=== PATIENT | male | born 2005 | race Caucasian/White ===

== ENCOUNTER 2023-02-05 08:20 | Day surgery (SDC) | payer MEDICAID ==
[~2023-02-05] VITALS: Ht 180.3 cm; Wt 81.6 kg
[~2023-02-05 08:20] MED LIST: [UNRECOGNIZED DRUG - CODE] TP
[2023-02-05] MEDS ORDERED: LACTATED RINGERS 1,000 ML IV SCH (09:00)
[2023-02-05] MEDS ORDERED: BUPIVACAINE HCL/PF 0.5% (5MG/ML) 30ML ONE (12:28)
[2023-02-05] MEDS ORDERED: ACETAMINOPHEN 500MG TABLET ONE (13:16)
[2023-02-05] MEDS ORDERED: PROPOFOL 200MG/20ML VIAL IV ONE ×2 (13:31→13:47)
[2023-02-05] MEDS ORDERED: MIDAZOLAM HCL 2 MG/2 ML VIAL ONE (13:33)
[2023-02-05] MEDS ORDERED: FENTANYL CITRATE/PF 50MCG/ML 2ML VIAL ONE (13:38)
[2023-02-05] MEDS ORDERED: ONDANSETRON HCL 4MG/2ML INJ ONE (13:39)
[2023-02-05] MEDS ORDERED: METOCLOPRAMIDE HCL 10MG/2ML VIAL ONE (13:39)
[2023-02-05] MEDS ORDERED: HYDROMORPHONE HCL/PF 2MG/ML CPJ ONE (14:00)
[2023-02-05] MEDS ORDERED: BACITRACIN 15GM TUBE TOP ONE (14:11)
[2023-02-05] MEDS ORDERED: HYDR-4001 PO (15:28)
== END 2023-02-05 16:45 | disposition home or self-care (01) ==
LOC: OR 08:20
PROVIDERS: ATTEND Surgery
DX: D23.4 Other benign neoplasm of skin of scalp and neck (principal); Z79.899 Other long term (current) drug therapy; Z98.890 Other specified postprocedural states; Z20.822 Contact with and (suspected) exposure to COVID-19
CPT/HCPCS: 21012; 87426; 88305; C9803; J1170; J2250; J2405; J2704; J2765; J3010; J3490